=== PATIENT | male | born 1965 | race Caucasian/White ===

== ENCOUNTER → 2018-03-04 | Outpatient (CLI) | payer OTHER ==
--- NOTE | 2018-03-04 09:58 | KCIC ---
MRI of the cervical spine without contrast 03/04/2018 CLINICAL HISTORY: Chronic neck pain. TECHNIQUE: Unenhanced T1-weighted, T2-weighted and inversion recovery sagittal and gradient echo and T2-weighted axial images of the cervical spine were obtained. FINDINGS: Minimal lateral curvature of the cervical spine is seen convex to the right. There is mild straightening of the normal cervical lordosis. Degenerative signal changes are seen involving all of the disks of the cervical spine. The marrow signal of the visualized bony structures is within normal limits. The cervical spinal cord is normal in morphology, position, and signal characteristics. At the C2-3 disc space there is a minimal generalized disc bulge. Degenerative changes are seen involving the uncovertebral and facet joints, right greater than left. These findings do not result in significant central spinal canal or neural foraminal stenosis. At the C3-4 disc space there is a mild generalized disc bulge. This is eccentric to the left. Degenerative changes are seen involving the uncovertebral and facet joints, left greater than right. These findings when combined do not result in significant central spinal canal stenosis. Mild left neural foraminal stenosis is seen. The right neural foramen is patent. At the C4-5, C5-6 and C6-7 disc space there are mild generalized disc bulges. Degenerative changes are seen involving the uncovertebral and facet joints bilaterally. These findings do not result in significant central spinal canal or neural foraminal stenosis. The C7-T1 disc space is within normal limits. IMPRESSION: Degenerative changes are seen involving cervical spine as outlined above. These findings do not result in significant central spinal canal stenosis at any level. Mild left neural foraminal stenosis is seen at C3-4. Electronically signed by: Benji Degroot MD (03/04/2018 9:54 AM) [id number]
== END | disposition home or self-care (01) ==
LOC: KCIC MRI 07:51
PROVIDERS: ATTEND Anesthesiology Pain Medicine
DX: M48.02 Spinal stenosis, cervical region (principal); M50.31 Other cervical disc degeneration, high cervical region
CPT/HCPCS: 72141

== ENCOUNTER → 2018-05-29 | Outpatient (CLI) | payer OTHER ==
[~2018-05-29] MED LIST: GADOBUTROL 7.5 MMOL/7.5 ML VIAL INT ART ONE; IOHEXOL 300 MG/ML 10ML VIAL. INT ART ONE; LIDOCAINE 1% Multi-Dose 20 ML VIAL. ID ONE
--- NOTE | 2018-05-29 16:01 | KCIC ---
MRI arthrogram of the right shoulder HISTORY: Right shoulder pain, decreased range of motion. Old injury. TECHNIQUE: Routine 4 plane sequences are obtained after intra-articular contrast injection. FINDINGS: Acromioclavicular joint mildly degenerative, with mild undersurface hypertrophy and mass effect.. Rotator cuff demonstrates mild tendinosis without evidence of tear. No significant subdeltoid bursal fluid or contrast. No evidence of labral tear or detachment. Articular cartilage intact. Biceps tendon intact. No bone destruction or acute fracture. No acute soft tissue abnormality. Mild cystic change at the posterior greater tuberosity. IMPRESSION: 1. Rotator cuff tendinosis, without measurable tear. 2. Acromioclavicular joint degenerative change. Electronically signed by: Dante Schumacher MD (05/29/2018 3:58 PM) [id number]
--- NOTE | 2018-05-29 17:27 | KCIC ---
PROCEDURE: Right shoulder injection using fluoroscopic guidance, prior to MR. HISTORY: Shoulder pain. TECHNIQUE: The procedure was explained to the patient as were potential risks, including among others infection, bleeding or allergic reaction. All questions were answered. Informed written and verbal consent was obtained. The shoulder was prepped and draped in the usual sterile manner. Following administration of local anesthetic, a 22-gauge needle was advanced into the anterior shoulder. Following negative aspiration, 12 cc of a solution of 5cc Omnipaque-300 contrast, 5 cc 1% lidocaine, 10 cc normal saline, and 0.1 cc gadolinium was injected without difficulty. The needle was removed. There was good hemostasis at the injection site. The patient left in stable condition without immediate complication. A single spot image is obtained. FLUOROSCOPY TIME:?17 seconds Electronically signed by: Dante Schumacher MD (05/29/2018 5:24 PM) [id number]
== END | disposition home or self-care (01) ==
LOC: KCIC 13:35
PROVIDERS: ATTEND Family Medicine Sports Medicine
DX: M19.011 Primary osteoarthritis, right shoulder (principal); Z98.890 Other specified postprocedural states
CPT/HCPCS: 23350; 73040; 73222; A9585; Q9967